=== PATIENT | male | born 1990 | race African-American/Black ===

== ENCOUNTER 2023-08-01 08:06 | Emergency (ER) | payer OTHER ==
[2023-08-01 08:36] VITALS: BP 112/73; PULSE 72; RESP 18; TEMP 98.5; BMI 21.9
[2023-08-01] MEDS ORDERED: FAMOTIDINE 20 MG/50 ML IVPB 20 MG/50 ML MG IVPB ONE ×2 (10:43→11:02)
[2023-08-01 11:02] LABS: BASO % 0.4 % (0-2.0); EOS % 0.7 % (0-4.5); HEMATOCRIT 41.4 % (35.4-49); LYMPH % 35.1 % (8-40); MCH 30.5 pg (25.7-33.7); MCHC 33.7 g/dl (32.0-35.9); MEAN CELL VOLUME 90.3 fl (80-96); MEAN PLT VOLUME 7.8 fl (7.5-11.1); MONO % 6.7 % (3.8-10.2); NEUT % 57.1 % (42.8-82.8); PLATELET COUNT 202 10^3/uL (134-434); RBC 4.59 M/mm3 (4.00-5.60); RDW 13.3 % (11.9-15.9); WHITE BLOOD COUNT 3.7 K/mm3 (4.0-10.0)
[2023-08-01] MEDS ORDERED: MAG HYDROX/AL HYDROX/SIMETH 30 ML UNIT-DOSE CUP ONE (11:02)
[2023-08-01] MEDS ORDERED: ACETAMINOPHEN INJECTION 100 ML IVPB ONE (11:02)
[2023-08-01] MEDS ORDERED: ONDANSETRON 4 MG/2 ML VIAL ONE (11:02)
[2023-08-01] MEDS ORDERED: SUCRALFATE 1 GM TABLET (FP) ONE (11:02)
[2023-08-01] MEDS: SODIUM CHLORIDE 0.9% 500 ML INFUS.BAG IV ONE (11:12)
[2023-08-01] MEDS: SUCRALFATE 1 GM TABLET (FP) PO SCH (11:12)
[2023-08-01] MEDS: ACETAMINOPHEN 1000 MG/100 ML BAG IVPB ONE (11:12)
[2023-08-01] MEDS: ONDANSETRON 4 MG/2 ML VIAL IVPUSH ONE (11:12)
[2023-08-01] MEDS: MAG HYDROX/AL HYDROX/SIMETH 30 ML UNIT-DOSE CUP PO ONE (11:12)
[2023-08-01 11:15] LABS: INR 1.02 (0.83-1.09); PROTHROMBIN TIME (PATIENT) 11.8 SEC (9.7-13.0)
[2023-08-01 11:18] LABS: ACTIVATED PTT 30.3 SECONDS (25.2-36.5)
[2023-08-01 11:26] LABS: POTASSIUM 4.3 mmol/L (3.5-5.1)
[2023-08-01 11:28] LABS: ALBUMIN 3.9 g/dl (3.4-5.0); BLOOD UREA NITROGEN 10.2 mg/dL (7-18); CALCIUM 8.9 mg/dL (8.5-10.1)
[2023-08-01 11:31] LABS: CREATININE 0.9 mg/dL (0.55-1.3)
[2023-08-01 11:33] LABS: BILIRUBIN,TOTAL 0.8 mg/dL (0.2-1); TOT PROT 7.6 g/dl (6.4-8.2)
[2023-08-01 13:22] LABS: URINE APPEARANCE CLEAR; URINE BILIRUBIN NEGATIVE (NEGATIVE); URINE COLOR YELLOW; URINE GLUCOSE (UA) NEGATIVE (NEGATIVE); URINE KETONE TRACE (NEGATIVE); URINE LEUK ESTERASE NEGATIVE (NEGATIVE); URINE NITRITE NEGATIVE (NEGATIVE); URINE PROTEIN NEGATIVE (NEGATIVE)
== END 2023-08-01 16:53 | disposition home or self-care (01) ==
LOC: JER 08:06
PROC: 3E033NZ Introduction of Analgesics, Hypnotics, Sedatives into Peripheral Vein, Percutaneous Approach (ICD-10-PCS; principal; 2023-08-01)
PROC: 3E033GC Introduction of Other Therapeutic Substance into Peripheral Vein, Percutaneous Approach (ICD-10-PCS; 2023-08-01)
DX: R10.813 Right lower quadrant abdominal tenderness (principal); R07.89 Other chest pain; R06.02 Shortness of breath; K59.00 Constipation, unspecified; R11.0 Nausea; K52.9 Noninfective gastroenteritis and colitis, unspecified
CPT/HCPCS: 36415; 71046-TC-FY; 74177-TC; 80053; 81003; 84484; 85025; 85610; 85730; 86850; 86900; 86901; 87086; 93005; 93010; 99285-25; J0131; Q9967